=== PATIENT | female | born 1980 | race American Indian/Alaskan Native ===

== ENCOUNTER 2018-06-06 23:34 | Inpatient (IN) | payer MEDICAID, OTHER ==
[2018-06-06] MEDS ORDERED: NITROSTAT SL ONE (23:38)
--- NOTE | 2018-06-06 23:40 | Emergency Department Report ---
ED Chest Pain HPI - General Chief Complaint: Chest Pain Stated Complaint: CHEST PAIN Time Seen by Provider: 06/06/18 23:37 Source: patient, EMS (verbal report received from EMS.ems notes not available at time of chart dictation), RN notes reviewed Mode of arrival: Stretcher Limitations: No Limitations - History of Present Illness Initial Comments: This is a 38-year-old female who is not known to this provider previously. She is brought to the hospital by EMS as a possible out of hospital code STEMI. Patient reports a past medical history of migraines, reports that she is not , and reports that she has not delivered a given within the past 6 weeks. She denies oral contraceptive use, and denies DVT, pulmonary embolus risk factors. She does not have a local primary care doctor. The patient reports being in her usual state of health, when at approximately 10:15 this evening, she left work, and had a headache. The headache was pounding, frontal and bitemporal. The headache was not sudden or thunderclap in nature, and did not reach maximal intensity within an hour. The headache is similar to prior "migraine headaches", but was subtly more intense. It is not the worse headache of her life, she reports a worse headache a few years ago. This headache was associated with jaw pain, and left arm numbness. The patient also describes central chest pain, which is not radiates to the back, arms or neck, it is not associated with vomiting, diaphoresis or shortness of breath. The chest wall pain started at 10:15, and thus far has been constant. It appears to increase with palpation. It decreases with rest. EMS gave the patient aspirin in the field. patient states no family history of dvt, PE, acs, CAD She denies recent aspirin use, cocaine use MD Complaint: chest pain -: Gradual Onset: during rest Pain Location: substernal Pain Radiation: none Severity: moderate Quality: tightness, aching, heaviness Consistency: constant Improves With: rest Worsens With: palpation Treatments Prior to Arrival: aspirin Aspirin use within the Past 7 Days: (0) No - Related Data On Oral Contraceptives: No Previous Rx's Medication Instructions Recorded Last Taken Type Ibuprofen [Motrin] 800 mg PO Q8H PRN #20 tablet 12/09/13 Unknown Rx Allergies Allergy/AdvReac Type Severity Reaction Status Date / Time No Known Allergies Allergy Unverified 12/09/13 18:33 Heart Score - HEART Score History: Slightly suspicious EKG: Non-specific Age: < 45 Risk factors: No known risk factors Troponin: < normal limit HEART Score: 1 - Critical Actions Critical Actions: 0-3 pts:0.9-1.7%risk of adverse cardiac event.Candidate for discharge ED Review of Systems ROS: Stated complaint: CHEST PAIN Other details as noted in HPI Constitutional: denies: diaphoresis, fever Eyes: denies: vision change Respiratory: denies: cough Cardiovascular: chest pain Gastrointestinal: denies: nausea, vomiting Genitourinary: denies: dysuria, frequency, discharge Musculoskeletal: denies: back pain, arthralgia Skin: denies: lesions Neurological: headache, numbness, paresthesias ED Past Medical Hx - Surgical History Additional Surgical History: tubal - Social History Smoking Status: Current Every Day Smoker Substance Use Type: Alcohol - Medications Home Medications: Home Medications Medication Instructions Recorded Confirmed Last Taken Type Ibuprofen [Motrin] 800 mg PO Q8H PRN #20 tablet 12/09/13 Unknown Rx ED Physical Exam - General General appearance: alert, in no apparent distress - Head Head exam: Present: atraumatic, normocephalic - Eye Eye exam: Present: normal appearance, EOMI, other (visual acuity intact to finger counting, color perception, reading at a close distance). Absent: nystagmus - ENT ENT exam: Present: normal exam, normal orophraynx, mucous membranes moist, normal external ear exam - Neck Neck exam: Present: normal inspection, full ROM. Absent: tenderness, meningismus - Respiratory Respiratory exam: Present: normal lung sounds bilaterally, chest wall tenderness. Absent: respiratory distress, wheezes, rales, rhonchi, stridor - Cardiovascular Cardiovascular Exam: Present: regular rate, normal rhythm, normal heart sounds. Absent: bradycardia, tachycardia, irregular rhythm, systolic murmur, diastolic murmur, rubs, gallop - GI/Abdominal GI/Abdominal exam: Present: soft. Absent: distended, tenderness, guarding, rebound, rigid, pulsatile mass - Extremities Exam Extremities exam: Present: normal inspection, full ROM, other (2+ pulses noted i n the bilateral upper, lower extremities. Compartments soft. No long bony tenderness. The pelvis is stable.). Absent: pedal edema, joint swelling, calf tenderness - Back Exam Back exam: Present: normal inspection, full ROM. Absent: tenderness, CVA tenderness (R), paraspinal tenderness, vertebral tenderness - Neurological Exam Neurological exam: Present: alert, oriented X3, CN II-XII intact, other (Extraocular movements intact. Tongue midline. No facial droop. Facial sensation intact to light touch in the V1, V2, V3 distribution bilaterally. 5 and 5 strength in 4 extremities.. Sensation is intact to light touch in 4 extremities.). Absent: motor sensory deficit - Psychiatric Psychiatric exam: Present: normal affect, normal mood - Skin Skin exam: Present: warm, dry, intact, normal color. Absent: rash ED Course Vital Signs 06/06/18 06/06/18 06/07/18 23:41 23:50 00:59 Temperature 97.5 F L Pulse Rate 91 H 73 76 Respiratory 14 15 Rate Blood Pressure 114/89 Blood Pressure 114/89 119/78 [Left] O2 Sat by Pulse 100 99 Oximetry 06/07/18 06/07/18 01:19 01:22 Temperature Pulse Rate 77 Respiratory 14 15 Rate Blood Pressure Blood Pressure 120/61 [Left] O2 Sat by Pulse 98 Oximetry - Reevaluation(s) Reevaluation #1: 06/07/18 00:22 Differential diagnosis, including but not limited to: Acute coronary syndrome, costochondritis, pericarditis, pneumonia, GERD, gastritis, migraine headache, tension headache, cluster headache, intracranial hemorrhage, transient ischemic attack Assessment and plan: 38-year-old female with 2 complaints. First complaint is headache which is not historically consistent with subarachnoid hemorrhage, and reported left arm numbness. This is not present currently. The patient is not a TPA candidate as she has a [place] Coma Scale of 15, with an NIH score of 0. On a similar note, given her young age, and normal neurologic examination, does not require emergent endovascular imaging. We will treat her headache, and obtain a noncontrast CT scan of the brain. Patient is already given aspirin. Her second complaint is chest pain. Her prehospital EKGs were significantly abnormal, but not definitively consistent with STEMI. Her emergency room EKGs are abnormal, but not consistent with ST elevation myocardial infarction. The patient reports no DVT or pulmonary embolus risk factors, is low risk by well's criteria, and is PERC negative. She is not tachycardic or hypoxic. We will treat her pain appropriately, and obtain screening laboratory studies and x-ray of the chest. Given her abnormal EKG, we will admit the patient to the medical service for cardiac risk stratification once her initial diagnostic workup has been co mpleted. This was discussed with the patient who verbalized understanding, and was amenable to this plan of care. Patient is currently in no acute distress, laying on a cellular phone, and talking in an animated fashion to a friend or family member. Reevaluation #2: 06/07/18 01:[address] scan of the brain is negative. Troponin negative. X-ray of the chest negative. Patient reports that she feels improved. Hospital physician is paged to arrange admission. Reevaluation #3: 06/07/18 01:27 The Hospital physician, Dr. Tran has accepted the patient to the medical service. DUANE score - Duane Score Age > 65: (0) No Aspirin use within the Past 7 Days: (0) No (no aspirin use prior to EMS administration) 3 or more CAD Risk Factors: (0) No 2 or more Angina events in past 24 hrs: (0) No Known CAD with more than 50% Stenosis: (0) No Elevated Cardiac Markers: (0) No ST Deviation Greater than 0.5mm: (0) No DUANE Score: 0 ED Medical Decision Making - Lab Data Result diagrams: 06/06/18 23:51 06/06/18 23:51 Vital Signs 06/06/18 06/06/18 23:41 23:50 Temperature 97.5 F L Pulse Rate 91 H 73 Respiratory 14 Rate Blood Pressure 114/89 Blood Pressure 114/89 [Left] O2 Sat by Pulse 100 Oximetry Lab Results 06/06/18 06/06/18 Range/Units 23:51 23:51 WBC 7.5 (4.5-11.0) K/mm3 RBC 4.73 (3.65-5.03) M/mm3 Hgb 14.2 (10.1-14.3) gm/dl Hct 43.2 H (30.3-42.9) % MCV 91 (79-97) fl MCH 30 (28-32) pg MCHC 33 (30-34) % RDW 14.7 (13.2-15.2) % Plt Count 329 (140-440) K/mm3 PT 11.9 L (12.2-14.9) Sec. INR 0.84 L (0.87-1.13) APTT 23.3 L (24.2-36.6) Sec. - EKG Data -: EKG Interpreted by Me EKG shows normal: sinus rhythm Rate: normal - EKG Data When compared to previous EKG there are: previous EKG unavailable 06/07/18 00:25 EKG #1 demonstrates sinus, 73 bpm, normal axis, normal intervals, Q waves noted in the inferior leads, not consistent with ST elevation myocardial infarction. EKG #2, right-sided EKG leads, shows sinus, 70 bpm, normal axis, normal intervals, low voltage in the anteroseptal leads, persistent Q waves in the in ferior leads, this EKG is abnormal, and not consistent with an ST elevation myocardial infarction. - Radiology Data Radiology results: report reviewed, image reviewed X-ray the chest is negative for acute disease Critical care attestation.: If time is entered above; I have spent that time in minutes in the direct care of this critically ill patient, excluding procedure time. ED Disposition Clinical Impression: Chest pain, Headache Disposition: OP ADMIT IP TO THIS HOSP Is pt being admited?: Yes Does the pt Need Aspirin: Yes Condition: Good Instructions: Chest Pain (ED) Referrals: MORAIMA SMITH MD [Primary Care Provider] - 3-5 Days
[2018-06-06] MEDS ORDERED: BENADRYL IV ONE (23:47)
[2018-06-06] MEDS ORDERED: REGLAN IV ONE (23:47)
--- NOTE | 2018-06-07 00:03 | XRay Report ---
FINAL REPORT EXAM: XR CHEST 1V AP HISTORY: cp COMPARISON: None available. FINDINGS: Frontal view(s) of the chest obtained. Cardiac silhouette within normal limits. No gross consolidatio n or effusion. No pneumothorax. IMPRESSION: No grossly acute findings.
[2018-06-07 00:11] LABS: Hematocrit 43.2 % (30.3-42.9); Hemoglobin 14.2 gm/dl (10.1-14.3); Mean Corpuscular HGB Conc 33 % (30-34); Mean Corpuscular Volume 91 fl (79-97); Platelet Count 329 K/mm3 (140-440); Red Blood Count 4.73 M/mm3 (3.65-5.03); Red Cell Distribution Width 14.7 % (13.2-15.2)
[2018-06-07 00:20] LABS: INR 0.84 (0.87-1.13)
[2018-06-07 00:21] LABS: Partial Thromboplastin Time 23.3 Sec. (24.2-36.6)
[2018-06-07 00:32] LABS: BUN/Creatinine Ratio 11; Blood Urea Nitrogen 11 mg/dL (7-17); Calcium 8.8 mg/dL (8.4-10.2); Hemolysis Index 12
[2018-06-07] MEDS ORDERED: ALUM-MAG HYDROX-SIMETH 200-200-20MG/5ML PO ONE (00:46)
[2018-06-07] MEDS ORDERED: LIDOCAINE VISCOUS 2% PO ONE (00:47)
--- NOTE | 2018-06-07 01:22 | Cat Scan Report ---
FINAL REPORT EXAM: CT HEAD/BRAIN WO CON HISTORY: headache htn, left arm nujmbness COMPARISON: None available. TECHNIQUE: Axial images obtained skull base through vertex. FINDINGS: No acute intracranial hemorrhage, midline shift or pathologic extra axial fluid collection. Ventricle s and cisterns are normal in size and configuration for the patient's age. Fernandes-white differentiation preserved. Calvarium grossly intact. Visualized ocular globes are grossly unremarkable. There is an empty sella, anatomic variant. Mild mucosal thickening the visualized paranasal sinuses. Mastoid air cells are clear. IMPRESSION: No grossly acute intracranial abnormality.
[2018-06-07] MEDS ORDERED: BABY ASPIRIN PO ONE (01:27)
[2018-06-07] MEDS ORDERED: SODIUM CHLORIDE FLUSH SYRINGE 10 ML IV PRN (02:12)
[2018-06-07] MEDS ORDERED: MORPHINE IV PRN (02:12)
[2018-06-07] MEDS ORDERED: ZOFRAN IV PRN (02:12)
[2018-06-07] MEDS ORDERED: TYLENOL PO PRN (02:12)
--- NOTE | 2018-06-07 02:15 | History and Physical Report ---
History of Present Illness Date of examination: 06/07/18 History of present illness: 38-year-old woman history of migraine as emergency room complaining of headache and chest pain. Pain isn't all epigastric area which she describes a sharp pain, intermittent every 2 minutes, intensity 5/10, no radiation, cannabinoid an d exacerbating or relieving factors. Admits to palpitation, no nausea vomiting, shortness bite or diaphoresis Review of systems Constitutional: no weight loss, chills, fever Ears, eyes, nose, mouth and throat: no nasal congestion, no nasal discharge, no sinus pressure, no vision change, no red eye. Neck: No neck pain or rigidity. Cardiovascular: + palpitations, chest pain Respiratory: no cough, shortness of breath Gastrointestinal: no hematochezia, abdominal pain Genitourinary : no frequency , no hematuria Musculoskeletal: no joint swelling or muscle ache Integumentary: no rash, no pruritis Neurological: no parathesias, no focal weakness Endocrine: no cold or heat intolerance, no polyuria or polydipsia Hematologic/Lymphatic: no easy bruising, no easy bleeding, no gland swelling Allergic/Immunologic: no urticaria, no angioedema. PAST MEDICAL HISTORY: migraine PAST SURGICAL HISTORY: Tubal ligation SOCIAL HISTORY: + alcohol, drugs, +tobacco FAMILY HISTORY: Hypertension Medications and Allergies Allergies Allergy/AdvReac Type Severity Reaction Status Date / Time No Known Allergies Allergy Unverified 12/09/13 18:33 Home Medications Medication Instructions Recorded Confirmed Last Taken Type Ibuprofen [Motrin] 800 mg PO Q8H PRN #20 tablet 12/09/13 Unknown Rx Exam - Physical Exam Narrative exam: General Apperance: The patient lying in bed, breathing comfortable HEENT: Normocephalic, atraumatic. Pupils equally round and reactive to light, EOMI, no sclericterus or JVD or thyromegaly or nodule. , no carotid bruit, mucous membranes moist, no exudate or erythema Heart: S1-S2, regular is rhythm Lungs: Clear to auscultation bilaterally, breathing comfortable Abdomen: Positive bowel sounds, soft, nontender, nondistended, no organomegaly Extremities: No edema cyanosis clubbing Skin: no rash, nodule, warm and dry Neuro: cranial nerves 2-12 intact, speech is fluent, motor/sensory intact - Constitutional Vitals: Temp Pulse Resp BP Pulse Ox 97.5 F L 77 15 120/61 98 06/06/18 23:41 06/07/18 01:19 06/07/18 01:22 06/07/18 01:19 06/07/18 01:19 Results - Labs CBC & Chem 7: 06/06/18 23:51 06/06/18 23:51 Labs: Abnormal lab results 06/06/18 06/06/18 06/06/18 Range/Units 23:51 23:51 23:51 Hct 43.2 H (30.3-42.9) % PT 11.9 L (12.2-14.9) Sec. INR 0.84 L (0.87-1.13) APTT 23.3 L (24.2-36.6) Sec. Glucose 131 H (65-100) mg/dL - Imaging and Cardiology EKG: image reviewed Chest x-ray: image reviewed CT Scan - head: report reviewed Assessment and Plan Assessment Chest pain, rule out ACS Plan Admit to medicine Check cardiac enzymes, stress test Percocet, DVT prophylaxis
[2018-06-07 06:28] LABS: BUN/Creatinine Ratio 10; Blood Urea Nitrogen 10 mg/dL (7-17); Calcium 8.3 mg/dL (8.4-10.2); Hemolysis Index 71
[2018-06-07] MEDS ORDERED: LOVENOX SUB-Q SCH (10:00)
[2018-06-07] MEDS ORDERED: SODIUM CHLORIDE FLUSH SYRINGE 10 ML IV SCH (10:00)
[2018-06-07] MEDS ORDERED: LEXISCAN IV ONE ×2 (10:24→10:25)
[2018-06-07 13:41] VITALS: BP 119/77
--- NOTE | 2018-06-07 14:30 | Discharge Summary ---
Providers - Providers Date of Admission: 06/07/18 02:12 Date of discharge: 06/07/18 Attending physician: SEPIDEH LEE Primary care physician: MORAIMA SMITH Hospitalization Condition: Good Hospital course: Patient is 38 yo presented with chest pain. She was given Aspirin admitted to rule out acute coronary syndrome. Stress test was done, was negative. Chest pain determined to be non-cardiac due to GERD. Disposition: - TO HOME OR SELFCARE - Discharge Diagnoses (1) GERD (gastroesophageal reflux disease) Status: Acute (2) Chest pain Status: Acute (3) Headache Status: Acute Core Measure Documentation - Palliative Care Palliative Care/ Comfort Measures: Not Applicable - Core Measures Any of the following diagnoses?: none Exam - Constitutional Vitals: Temp Pulse Resp BP Pulse Ox 98.0 F 78 14 119/77 98 06/07/18 12:44 06/07/18 12:44 06/07/18 12:44 06/07/18 12:44 06/07/18 12:44 Plan Activity: advance as tolerated Diet: low fat, low cholesterol, low salt Additional Instructions: 1.Follow up with PCP or [facility] in 1 week Follow up with: MORAIMA SMITH MD [Primary Care Provider] - 3-5 Days Prescriptions: Butalb/Acetamin/Caff 50-325-40 [Fioricet] 1 tab PO Q6HR PRN #12 tab PRN Reason: Headache Famotidine [Pepcid] 20 mg PO BID #30 tablet
--- NOTE | 2018-06-07 23:12 | Treadmill Report ---
THALLIUM STRESS TEST LEFT VENTRICLE: Left ventricular chamber size is within normal spread. There is normal apical thinning, otherwise homogeneous uptake of the tracer in all segments, no significant perfusion defects identified. Gated analysis demonstrates normal left ventricular systolic function, ejection fraction of 66%. CONCLUSION: Normal myocardial perfusion study. JOB# [id number] CA/NTS
== END 2018-06-07 17:00 | disposition home or self-care (01) | DRG 392 ==
LOC: ED 23:34 → 4A 06-07 02:12
PROVIDERS: ADMIT Internal Medicine; ATTEND Internal Medicine
DX: K21.9 Gastro-esophageal reflux disease without esophagitis (principal); R07.9 Chest pain, unspecified; F17.210 Nicotine dependence, cigarettes, uncomplicated; G43.909 Migraine, unspecified, not intractable, without status migrainosus; Z82.49 Family history of ischemic heart disease and other diseases of the circulatory system; Z72.89 Other problems related to lifestyle; Z98.51 Tubal ligation status
CPT/HCPCS: 36415; 70450; 71045; 78452; 80048; 84484; 84702; 85027; 85610; 85730; 93005; 93010; 93017; 96374; 99406; G0378; A9502; J1650; J2765; J2785

== ENCOUNTER 2018-11-28 22:39 | Emergency (ER) | payer OTHER ==
[2018-11-28 23:30] LABS: Basophils # (Auto) 0.1 K/mm3 (0.0-0.1); Basophils % (Auto) 0.6 % (0.0-1.8); Eosinophils # (Auto) 0.1 K/mm3 (0.0-0.4); Eosinophils % (Auto) 1.3 % (0.0-4.3); Hemoglobin 14.9 gm/dl (10.1-14.3); Lymphocytes # (Auto) 2.5 K/mm3 (1.2-5.4); Lymphocytes % (Auto) 27.8 % (13.4-35.0); Mean Corpuscular HGB Conc 34 % (30-34); Mean Corpuscular Volume 91 fl (79-97); Monocytes # (Auto) 0.7 K/mm3 (0.0-0.8); Monocytes % (Auto) 7.4 % (0.0-7.3); Platelet Count 356 K/mm3 (140-440); Red Blood Count 4.83 M/mm3 (3.65-5.03); Red Cell Distribution Width 14.6 % (13.2-15.2)
[2018-11-29 00:03] LABS: Albumin 3.9 g/dL (3.9-5); Calcium 8.8 mg/dL (8.4-10.2)
[2018-11-29] MEDS ORDERED: NACL 0.9% 1000 ML 1,000 ML IV ONE (00:48)
[2018-11-29] MEDS ORDERED: ZOFRAN IV ONE (00:48)
[2018-11-29] MEDS ORDERED: MORPHINE IV ONE (00:48)
--- NOTE | 2018-11-29 00:49 | Emergency Department Report ---
ED Abdominal Pain HPI - General Chief Complaint: Abdominal Pain Stated Complaint: ABDOMINAL PAIN/VOMITING Time Seen by Provider: 11/29/18 00:15 Source: patient, RN notes reviewed, old records reviewed Mode of arrival: Wheelchair Limitations: Physical Limitation - History of Present Illness Initial Comments: Gynecology: Life cycle Primary care: Dr. Maravilla, [facility] Past medical history: Obesity, migraine headaches, recently treated for trichomoniasis, right-sided ovarian cyst, reports having had a recent abnormal outpatient gynecologic ultrasound, suggesting thickened endometrium. She states her photographic technician is planning on doing a DNC in the future. This is a 38-year-old female. The patient is known to this provider previously. The patient presents to the ER today with a complaint of nontraumatic rather sudden left flank pain moving to the left lower quadrant. This pain has been present for the past 24-48 hours. The pain is sharp and throbbing, radiates back and forth, increases with palpation, percussion, and decreases with rest. There is positive nausea and vomiting. There are no urinary symptoms. There are no gynecologic symptoms. The patient denies other complaints. She's not had pain like this in the past. MD Complaint: abdominal pain, flank pain, other -: Gradual Location: LLQ, L flank Radiation: LLQ, L flank Severity: moderate Severity scale (0 -10): 10 Quality: cramping Consistency: other Improves With: other Worsens With: other - Related Data Previous Rx's Medication Instructions Recorded Last Taken Type Ibuprofen [Motrin 800 MG tab] 800 mg PO Q8H PRN #20 tablet 12/09/13 Unknown Rx Butalb/Acetamin/Caff 50-325-40 1 tab PO Q6HR PRN #12 tab 06/07/18 Unknown Rx [Fioricet] Famotidine [Pepcid] 20 mg PO BID #30 tablet 06/07/18 Unknown Rx Acetaminophen [Non-Aspirin Extra 500 mg PO Q6HR PRN #30 tablet 11/29/18 Unknown Rx Strength] Ketorolac [Toradol] 10 mg PO Q6H PRN #20 tablet 11/29/18 Unknown Rx Ondansetron [Zofran Odt] 4 mg PO Q8HR PRN #20 tab.rapdis 11/29/18 Unknown Rx Allergies Allergy/AdvReac Type Severity Reaction Status Date / Time No Known Allergies Allergy Unverified 12/09/13 18:33 ED Review of Systems ROS: Stated complaint: ABDOMINAL PAIN/VOMITING Other details as noted in HPI Constitutional: denies: fever Eyes: denies: eye discharge ENT: denies: epistaxis Respiratory: denies: cough Cardiovascular: denies: chest pain Gastrointestinal: abdominal pain, nausea, vomiting Genitourinary: denies: urgency, dysuria Musculoskeletal: back pain Skin: denies: lesions Neurological: denies: weakness Psychiatric: anxiety ED Past Medical Hx - Past Medical History Previous Medical History?: No - Surgical History Past Surgical History?: Yes Additional Surgical History: tubal - Social History Smoking Status: Never Smoker - Medications Home Medications: Home Medications Medication Instructions Recorded Confirmed Last Taken Type Ibuprofen [Motrin 800 MG tab] 800 mg PO Q8H PRN #20 tablet 12/09/13 06/07/18 Unknown Rx Butalb/Acetamin/Caff 50-325-40 1 tab PO Q6HR PRN #12 tab 06/07/18 Unknown Rx [Fioricet] Famotidine [Pepcid] 20 mg PO BID #30 tablet 06/07/18 Unknown Rx Acetaminophen [Non-Aspirin Extra 500 mg PO Q6HR PRN #30 tablet 11/29/18 Unknown Rx Strength] Ketorolac [Toradol] 10 mg PO Q6H PRN #20 tablet 11/29/18 Unknown Rx Ondansetron [Zofran Odt] 4 mg PO Q8HR PRN #20 tab.rapdis 11/29/18 Unknown Rx ED Physical Exam - General Limitations: Physical Limitation General appearance: alert, anxious, obese - Head Head exam: Present: atraumatic, normocephalic - Eye Eye exam: Present: normal appearance, EOMI. Absent: nystagmus - ENT ENT exam: Present: normal exam, normal orophraynx, mucous membranes moist, normal external ear exam - Neck Neck exam: Present: normal inspection, full ROM. Absent: tenderness, meningismus - Respiratory Respiratory exam: Present: normal lung sounds bilaterally. Absent: respiratory distress - Cardiovascular Cardiovascular Exam: Present: regular rate, normal rhythm, normal heart sounds. Absent: bradycardia, tachycardia, irregular rhythm, systolic murmur, diastolic murmur, rubs, gallop - GI/Abdominal GI/Abdominal exam: Present: soft, tenderness, other (there is left lower quadrant abdominal pain. There is left lower quadrant abdominal tenderness. There is no rebound, guarding or peritoneal sign). Absent: distended, guarding, rebound, rigid, pulsatile mass - External exam: Present: normal external exam Speculum exam: Present: normal speculum exam Bi-manual exam: Present: normal bi-manual exam, other (chaperoned by nurse STERLING ROJO). Absent: cervical motion tendernes, adnexal tenderness, adnexal mass, uterine enlargement, uterine tenderness - Extremities Exam Extremities exam: Present: normal inspection, full ROM, other (2+ pulses noted in the bilateral upper, lower extremities. Compartments soft. No long bony tenderness. The pelvis is stable.). Absent: pedal edema, joint swelling, calf tenderness - Back Exam Back exam: Present: normal inspection, full ROM. Absent: tenderness, CVA tenderness (R), CVA tenderness (L), paraspinal tenderness, vertebral tenderness - Neurological Exam Neurological exam: Present: alert, other (Extraocular movements intact. Tongue midline. No facial droop. Facial sensation intact to light touch in the V1, V2, V3 distribution bilaterally. 5 and 5 strength in 4 extremities.. Sensation is intact to light touch in 4 extremities.) - Psychiatric Psychiatric exam: Present: anxious - Skin Skin exam: Present: warm, dry, intact, normal color. Absent: rash ED Course Vital Signs 11/28/18 11/29/18 11/29/18 22:40 00:00 01:10 Temperature 97.8 F 98.8 F Pulse Rate 69 83 Respiratory 18 15 19 Rate Blood Pressure 144/83 Blood Pressure 120/84 [Left] O2 Sat by Pulse 100 97 Oximetry 11/29/18 11/29/18 01:40 04:00 Temperature Pulse Rate 86 Respiratory 16 20 Rate Blood Pressure Blood Pressure 109/65 [Left] O2 Sat by Pulse 96 Oximetry - Reevaluation(s) Reevaluation #1: 11/29/18 01:15 Differential diagnosis, including but not limited to: Renal colic, urinary tract infection, ovarian cyst, pelvic inflammatory disease, constipation, obstruction Assessment and plan: 38-year-old female, recently diagnosed with trichomoniasis, noted to have right-sided ovarian cyst, reports an abnormal outpatient ultrasound, now with left flank and left lower quadrant pain. Patient is afebrile, with reassuring vital signs. Laboratory studies so far are essentially unremarkable. Pain medication will be given. Patient had some expected pruritus with morphine administration, although nothing concerning for anaphylaxis or anaphylactoid reaction. Gynecologic ultrasound, CT scan of the abdomen and pelvis have been ordered and are pending, and we will perform a pel tereza examination. We will reassess after her data points have resulted. Reevaluation #2: 11/29/18 02:56 Patient feels much improved after initial pain medication. Resting comfortably in stretcher with no abdominal tenderness. She is smiling and states that she feels much improved. CT scan is interpreted and reviewed and appreciated. I do not have a heavy suspicion for torsion at this time, as the patient did not have exquisite left-sided adnexal tenderness. Ultrasound is pending performance and interpretation at this time. Reevaluation #3: 11/29/18 04:25 As expected, gynecologic ultrasound does not demonstrate torsion. Patient speak ing on cell phone, and feels quite comfortable. Her menstruation is about to start. She reports that she always has abdominal pain with her menstruation. She has minimal lower quadrant tenderness, but no rebound or guarding, and states that she feels ready for discharge. we contacted her covering photographic technician, Dr. Valeria Camara, and I discussed the patient's CT scan, physical exam, ultrasounds, and laboratory studies. We agree the patient at this point time does not appear to require emergent surgical evaluation. Gynecology on- call is amenable to following the patient closely as an outpatient. ED Medical Decision Making - Lab Data Result diagrams: 11/28/18 23:02 11/28/18 23:04 Vital Signs 11/28/18 11/29/18 22:40 00:00 Temperature 97.8 F 98.8 F Pulse Rate 69 83 Respiratory 18 15 Rate Blood Pressure 144/83 Blood Pressure 120/84 [Left] O2 Sat by Pulse 100 97 Oximetry Active Medications Sodium Chloride (Nacl 0.9% 1000 Ml) 1,000 mls @ 999 mls/hr IV BOLUS ONE Stop: 11/29/18 01:48 Lab Results 11/28/18 11/28/18 11/28/18 Range/Units 23:02 23:04 Unknown WBC 8.9 (4.5-11.0) K/mm3 RBC 4.83 (3.65-5.03) M/mm3 Hgb 14.9 H (10.1-14.3) gm/dl Hct 44.0 H (30.3-42.9) % MCV 91 (79-97) fl MCH 31 (28-32) pg MCHC 34 (30-34) % RDW 14.6 (13.2-15.2) % Plt Count 356 (140-440) K/mm3 Lymph % (Auto) 27.8 (13.4-35.0) % [place] % (Auto) 7.4 H (0.0-7.3) % Eos % (Auto) 1.3 (0.0-4.3) % Baso % (Auto) 0.6 (0.0-1.8) % Lymph # 2.5 (1.2-5.4) K/mm3 Treg[place] # 0.7 (0.0-0.8) K/mm3 Eos # 0.1 (0.0-0.4) K/mm3 Baso # 0.1 (0.0-0.1) K/mm3 Seg Neutrophils % 62.9 (40.0-70.0) % Seg Neutrophils # 5.6 (1.8-7.7) K/mm3 Sodium 140 (137-145) mmol/L Potassium 4.0 (3.6-5.0) mmol/L Chloride 101.9 (98-107) mmol/L Carbon Dioxide 29 (22-30) mmol/L Anion Gap 13 mmol/L BUN 13 (7-17) mg/dL Creatinine 1.4 H (0.7-1.2) mg/dL Estimated GFR 51 ml/min BUN/Creatinine Ratio 9 % Glucose 124 H (65-100) mg/dL Calcium 8.8 (8.4-10.2) mg/dL Total Bilirubin 0.20 (0.1-1.2) mg/dL AST 25 (5-40) units/L ALT 30 (7-56) units/L Alkaline Phosphatase 61 (35-129) units/L Total Protein 6.7 (6.3-8.2) g/dL Albumin 3.9 (3.9-5) g/dL Albumin/Globulin Ratio 1.4 % Urine Color Yellow (Yellow) Urine Turbidity Clear (Clear) Urine pH 7.0 (5.0-7.0) Ur Specific [place] 1.026 (1.003-1.030) Urine Protein <15 mg/dl (Negative) mg/dL Urine Glucose (UA) Neg (Negative) mg/dL Urine Ketones Neg (Negative) mg/dL Urine Blood Neg (Negative) Urine Nitrite Neg (Negative) Urine Bilirubin Neg (Negative) Urine Urobilinogen < 2.0 (<2.0) mg/dL Ur Leukocyte Esterase Neg (Negative) Urine WBC (Auto) 1.0 (0.0-6.0) /HPF Urine RBC (Auto) 1.0 (0.0-6.0) /HPF U Epithel Cells (Auto) 6.0 (0-13.0) /HPF Urine Mucus Few /HPF Urine HCG, Qual (Negative) 11/29/18 Range/Units 00:50 WBC (4.5-11.0) K/mm3 RBC (3.65-5.03) M/mm3 Hgb (10.1-14.3) gm/dl Hct (30.3-42.9) % MCV (79-97) fl MCH (28-32) pg MCHC (30-34) % RDW (13.2-15.2) % Plt Count (140-440) K/mm3 Lymph % (Auto) (13.4-35.0) % [place] % (Auto) (0.0-7.3) % Eos % (Auto) (0.0-4.3) % Baso % (Auto) (0.0-1.8) % Lymph # (1.2-5.4) K/mm3 [place] # (0.0-0.8) K/mm3 Eos # (0.0-0.4) K/mm3 Baso # (0.0-0.1) K/mm3 Seg Neutrophils % (40.0-70.0) % Seg Neutrophils # (1.8-7.7) K/mm3 Sodium (137-145) mmol/L Potassium (3.6-5.0) mmol/L Chloride (98-107) mmol/L Carbon Dioxide (22-30) mmol/L Anion Gap mmol/L BUN (7-17) mg/dL Creatinine (0.7-1.2) mg/dL Estimated GFR ml/min BUN/Creatinine Ratio % Glucose (65-100) mg/dL Calcium (8.4-10.2) mg/dL Total Bilirubin (0.1-1.2) mg/dL AST (5-40) units/L ALT (7-56) units/L Alkaline Phosphatase (35-129) units/L Total Protein (6.3-8.2) g/dL Albumin (3.9-5) g/dL Albumin/Globulin Ratio % Urine Color (Yellow) Urine Turbidity (Clear) Urine pH (5.0-7.0) Ur Specific [place] (1.003-1.030) Urine Protein (Negative) mg/dL Urine Glucose (UA) (Negative) mg/dL Urine Ketones (Negative) mg/dL Urine Blood (Negative) Urine Nitrite (Negative) Urine Bilirubin (Negative) Urine Urobilinogen (<2.0) mg/dL Ur Leukocyte Esterase (Negative) Urine WBC (Auto) (0.0-6.0) /HPF Urine RBC (Auto) (0.0-6.0) /HPF U Epithel Cells (Auto) (0-13.0) /HPF Urine Mucus /HPF Urine HCG, Qual Negative (Negative) - Radiology Data Radiology results: pending, report reviewed, image reviewed Print Report Referring Physician: SEPIDEH LOTT Patient Name: HINA HODGE Date of : 1980 Sex: Female Report Date: 2018-11-29 Report Status: [place] [address] Cat Scan Report Signed Patient: HINA HODGE MR#: [id number] : 1980 Acct:[id number] Age/Sex: 38 / F ADM Date: 11/28/18 Loc: ED Attending Dr: Ordering Physician: SEPIDEH LOTT MD Date of Service: 11/29/18 Procedure(s): CT abdomen pelvis wo con Accession Number(s): [id number] cc: SEPIDEH LOTT MD CT ABDOMEN AND PELVIS WITHOUT CONTRAST HISTORY: Left lower quadrant abdominal pain. COMPARISON: No relevant prior imaging study available. TECHNIQUE: Axial, coronal and sagittal CT imaging of the abdomen and pelvis was performed without contrast. Lack of intravenous contrast limits evaluation of the vascular and solid organs. All CT scans at this location are performed using CT dose reduction for ALARA by means of automated exposure control. FINDINGS: LOWER CHEST: No significant abnormality. LIVER: No significant abnormality. ARMANDO IARY: No significant abnormality. PANCREAS: No significant abnormality. SPLEEN: No significant abnormality. ADRENALS: No significant abnormality. KIDNEYS AND URETERS: No significant abnormality. GI TRACT: No significant abnormality of the stomach, small bowel or colon. Unremarkable appendix. PERITONEUM: No free fluid. No free air. No fluid collection. LYMPH NODES: No significant adenopathy. VASCULATURE: No significant abnormality. URINARY BLADDER: No significant abnormality. REPRODUCTIVE ORGANS: There is nonspecific enlargement and increased attenuation of the left ovary without surrounding inflammation. No additional significant abnormality. ADDITIONAL FINDINGS: None. SKELETAL SYSTEM: No si gnificant abnormality. IMPRESSION: 1. Nonspecific abnormal appearance of the left ovary may represent torsion. A pelvic ultrasound would be helpful for further evaluation. 2. No additional acute abnormality of the abdomen or pelvis. Signer Name: Harpreet Vicente MD Signed: 11/29/2018 2:26 AM Workstation Name: [id number] Transcribed By: MN Dictated By: Harpreet Vicente MD Electronically Authenticated By: Harpreet Vicente MD Signed Date/Time: 11/29/18 022 Print Report Referring Physician: SEPIDEH LOTT Patient Name: HINA HODGE Date of : 1980 Sex: Female Report Date: 2018-11-29 Report Status: Finalized Findings [facility] [address] [id number] Ultrasound Report Signed Patient: HINA HODGE MR#: [id number] : 1980 Acct:[id number] Age/Sex: 38 / F ADM Date: 11/28/18 Loc: ED Attending Dr: Ordering Physician: SEPIDEH LOTT MD Date of Service: 11/29/18 Procedure(s): US transvaginal Accession Number(s): [id number] cc: SEPIDEH LOTT MD ULTRASOUND PELVIS INDICATION: Left lower quadrant pain. History of right ovarian cyst. TECHNIQUE: Transabdominal and Transvaginal. Duplex Color Doppler used: Yes. COMPARISON: CT of the abdomen and pelvis without contrast from earlier the same day. FINDINGS: Uterus: Present. Size: 12.9 x 5.8 x 6.1 cm. Endometrial complex: Thickened measuring 2.0 cm. Mass lesions: A probable uterine body fibroid measures 2.5 x 2.1 cm. Additional findings: None. Right Ovary: Size: 3.5 x 1.6 x 3.1 cm Blood flow: Normal. Cyst or mass: None. Left Ovary: Size: 5.1 x 2.3 x 4.6 cm Blood flow: Normal. Cyst or mass: A dominant follicle measures 2 cm. No suspicious solid lesion. Urinary Bladder: Normal. Free Fluid: Minimal free fluid is likely physiologic. Additional Findings: None. IMPRESSION: 1. No acute sonographic abnormality of the pelvis. 2. Probable uterine fibroid as above. Signer Name: Harpreet Vicente MD Signed: 11/29/2018 4:19 AM Workstation Name: [id number] Transcribed By: ESTHER Dictated By: Harpreet baig MD Electronically Authenticated By: Harpreet Vicente MD Signed Date/Time: 11/29/18 0419 Critical care attestation.: If time is entered above; I have spent that time in minutes in the direct care of this critically ill patient, excluding procedure time. ED Disposition Clinical Impression: Left lower quadrant abdominal pain Disposition: DC-01 TO HOME OR SELFCARE Is pt being admited?: No Does the pt Need Aspirin: No Condition: Stable Additional Instructions: Cultures were sent today, and results will be available in the next 3-5 days. Have your photographic technician contact the medical records department to obtain culture results. Take the pain medication, nausea medication as needed/directed. Avoid heavy lifting and sexual activity until cleared by her photographic technician. Return to the emergency room right away with new, worsening or different symptoms, or symptoms not present on the initial emergency room evaluation. Referrals: AMI CAMARA MD [Staff Physician] - 3-5 Days
[2018-11-29 01:08] LABS: Bilirubin,Urine NEG (Negative); Blood,Urine NEG (Negative); Color,Urine Yellow (Yellow); Mucus,Urine FEW /HPF; Protein,Urine <15 mg/dL mg/dL (Negative); Urobilinogen,Urine < 2.0 mg/dL (<2.0)
[2018-11-29 01:12] LABS: HCG Qualitative,Urine Negative (Negative)
--- NOTE | 2018-11-29 02:31 | Cat Scan Report ---
CT ABDOMEN AND PELVIS WITHOUT CONTRAST HISTORY: Left lower quadrant abdominal pain. COMPARISON: No relevant prior imaging study available. TECHNIQUE: Axial, coronal and sagittal CT imaging of the abdomen and pelvis was performed without co ntrast. Lack of intravenous contrast limits evaluation of the vascular and solid organs. All CT sca ns at this location are performed using CT dose reduction for ALARA by means of automated exposure co ntrol. FINDINGS: LOWER CHEST: No significant abnormality. LIVER: No significant abnormality. BILIARY: No significant abnormality. PANCREAS: No significant abnormality. SPLEEN: No significant abnormality. ADRENALS: No significant abnormality. KIDNEYS AND URETERS: No significant abnormality. GI TRACT: No significant abnormality of the stomach, small bowel or colon. Unremarkable appendix. PERITONEUM: No free fluid. No free air. No fluid collection. LYMPH NODES: No significant adenopathy. VASCULATURE: No significant abnormality. URINARY BLADDER: No significant abnormality. REPRODUCTIVE ORGANS: There is nonspecific enlargement and increased attenuation of the left ovary wit hout surrounding inflammation. No additional significant abnormality. ADDITIONAL FINDINGS: None. SKELETAL SYSTEM: No significant abnormality. IMPRESSION: 1. Nonspecific abnormal appearance of the left ovary may represent torsion. A pelvic ultrasound would be helpful for further evaluation. 2. No additional acute abnormality of the abdomen or pelvis. Signer Name: Harpreet Vicente MD Signed: 11/29/2018 2:26 AM Workstation Name: [id number]
[2018-11-29 04:05] VITALS: BP 109/65
[2018-11-29] MEDS ORDERED: TORADOL IV ONE (04:22)
--- NOTE | 2018-11-29 04:23 | Ultrasound Report ---
ULTRASOUND PELVIS INDICATION: Left lower quadrant pain. History of right ovarian cyst. TECHNIQUE: Transabdominal and Transvaginal. Duplex Color Doppler used: Yes. COMPARISON: CT of the abdomen and pelvis without contrast from earlier the same day. FINDINGS: Uterus: Present. Size: 12.9 x 5.8 x 6.1 cm. Endometrial complex: Thickened measuring 2.0 cm. Mass lesions: A probable uterine body fibroid measures 2.5 x 2.1 cm. Additional findings: None. Right Ovary: Size: 3.5 x 1.6 x 3.1 cm Blood flow: Normal. Cyst or mass: None. Left Ovary: Size: 5.1 x 2.3 x 4.6 cm Blood flow: Normal. Cyst or mass: A dominant follicle measures 2 cm. No suspicious solid lesion. Urinary Bladder: Normal. Free Fluid: Minimal free fluid is likely physiologic. Additional Findings: None. IMPRESSION: 1. No acute sonographic abnormality of the pelvis. 2. Probable uterine fibroid as above. Signer Name: Harpreet Vicente MD Signed: 11/29/2018 4:19 AM Workstation Name: [id number]
== END 2018-11-29 05:00 | disposition home or self-care (01) ==
LOC: ED 22:39
DX: R10.32 Left lower quadrant pain (principal); R11.2 Nausea with vomiting, unspecified; Z98.51 Tubal ligation status; Z79.899 Other long term (current) drug therapy
CPT/HCPCS: 36415; 74176; 76830; 80053; 81001; 81025; 85025; 87210; 87591; 93975; 96361; 96374; 96375; 99284; J1885; J2270; J2405; J7030

== ENCOUNTER 2018-12-11 21:32 | Emergency (ER) | payer OTHER ==
--- NOTE | 2018-12-11 22:00 | Event Note ---
ED Screening Note Date of service: 12/11/18 Time: 21:53 ED Screening Note: 38 y/o female LMP 12/11/18. Has soaked 2 pads in an hours. History of heavy periods. No pain. No dizziness. This initial assessment/diagnostic orders/clinical plan/treatment(s) is/are subject to change based on patients health status, clinical progression and re- assessment by fellow clinical providers in the ED. Further treatment and workup at subsequent clinical providers discretion. Patient/guardian urged not to elope from the ED as their condition may be serious if not clinically assessed and managed. Initial orders include:
[2018-12-11 22:40] VITALS: BP 126/70
[2018-12-11 22:44] LABS: Hematocrit 41.6 % (30.3-42.9); Hemoglobin 14.1 gm/dl (10.1-14.3); Mean Corpuscular HGB Conc 34 % (30-34); Mean Corpuscular Volume 91 fl (79-97); Red Blood Count 4.59 M/mm3 (3.65-5.03); Red Cell Distribution Width 14.1 % (13.2-15.2)
[2018-12-11 22:45] LABS: Basophils # (Auto) 0.1 K/mm3 (0.0-0.1); Basophils % (Auto) 0.8 % (0.0-1.8); Eosinophils # (Auto) 0.3 K/mm3 (0.0-0.4); Eosinophils % (Auto) 3.2 % (0.0-4.3); Lymphocytes % (Auto) 34.9 % (13.4-35.0); Monocytes # (Auto) 0.7 K/mm3 (0.0-0.8); Monocytes % (Auto) 7.9 % (0.0-7.3); Platelet Count 305 K/mm3 (140-440)
[2018-12-11 23:50] LABS: Alanine Aminotransferase 19 units/L (7-56); Albumin 4.2 g/dL (3.9-5); BUN/Creatinine Ratio 10; Blood Urea Nitrogen 12 mg/dL (7-17); Calcium 9.1 mg/dL (8.4-10.2); Hemolysis Index 3
--- NOTE | 2018-12-12 01:10 | Emergency Department Report ---
ED Female HPI - General Chief complaint: Vaginal Bleeding Stated complaint: CYST AND BLEEDING HEAVY Time Seen by Provider: 12/11/18 21:53 Source: patient Mode of arrival: Ambulatory Limitations: No Limitations - History of Present Illness Initial comments: The patient is a 38-year-old -[place] female with recently diagnosed left ovarian cyst presented to the ED with complaint of acute onset severe pelvic pain with heavy vaginal bleeding for the last 2 days. Patient states that she started having her menstrual cycle about 3 days ago on that in the last 2 days her menstrual cycle has been heavy with blood clots in the toilet. Patient states that although she has a history of heavy vaginal bleeding to her menstrual cycle the fact that she developed large amount of blood clots made her concerned and she decided come to the ED for evaluation. Patient denies fever, chills, nausea, vomiting, dizziness, chest pain, shortness of breath, dysuria, urinary frequency and urgency or low back pain. MD Complaint: vaginal bleeding, pelvic pain -: Sudden, days(s) (2) Location: suprapubic Radiation: non-radiating Severity: severe Severity scale (0 -10): 3 Quality: cramping, dull Consistency: constant Improves with: none Worsens with: none Are you Now?: No Last Menstrual Period: 12/12/18 EDC: 09/18/19 Associated Symptoms: denies other symptoms, vaginal bleeding, abdominal pain, f ever/chills. denies: vaginal discharge, nausea/vomiting, headaches, loss of appetite, dysuria, hematuria, rash, shortness of breath, syncope, weakness - Related Data Sexually active: Yes : 3 Para: 3 A: 0 Previous Rx's Medication Instructions Recorded Last Taken Type Ibuprofen [Motrin 800 MG tab] 800 mg PO Q8H PRN #20 tablet 12/09/13 Unknown Rx Butalb/Acetamin/Caff 50-325-40 1 tab PO Q6HR PRN #12 tab 06/07/18 Unknown Rx [Fioricet] Famotidine [Pepcid] 20 mg PO BID #30 tablet 06/07/18 Unknown Rx Acetaminophen [Non-Aspirin Extra 500 mg PO Q6HR PRN #30 tablet 11/29/18 Unknown Rx Strength] Ketorolac [Toradol] 10 mg PO Q6H PRN #20 tablet 11/29/18 Unknown Rx Ondansetron [Zofran Odt] 4 mg PO Q8HR PRN #20 tab.rapdis 11/29/18 Unknown Rx Acetaminophen/Codeine [Tylenol 1 tab PO Q6H PRN #14 tab 12/12/18 Unknown Rx /Codeine # 3 tab] Ibuprofen [Motrin] 800 mg PO Q8HR PRN #20 tablet 12/12/18 Unknown Rx Ondansetron [Zofran Odt] 4 mg PO Q8HR PRN #15 tab.rapdis 12/12/18 Unknown Rx Allergies Allergy/AdvReac Type Severity Reaction Status Date / Time No Known Allergies Allergy Verified 12/11/18 21:36 ED Review of Systems ROS: Stated complaint: CYST AND BLEEDING HEAVY Other details as noted in HPI Comment: All other systems reviewed and negative Constitutional: denies: chills, fever Eyes: denies: eye pain, eye discharge, vision change ENT: denies: ear pain, throat pain Respiratory: denies: cough, shortness of breath, wheezing Cardiovascular: denies: chest pain, palpitations Endocrine: no symptoms reported Gastrointestinal: abdominal pain (pelvic pain). denies: nausea, vomiting, diarrhea, constipation, hematemesis, hematochezia Genitourinary: hematuria, abnormal menses, other (heavy vaginal bleeding). denies: urgency, dysuria, discharge Musculoskeletal: denies: back pain, joint swelling, arthralgia Skin: denies: rash, lesions Neurological: denies: headache, weakness, paresthesias Psychiatric: denies: anxiety, depression Hematological/Lymphatic: denies: easy bleeding, easy bruising ED Past Medical Hx - Surgical History Additional Surgical History: tubal - Social History Smoking Status: Current Every Day Smoker Substance Use Type: Alcohol - Medications Home Medications: Home Medications Medication Instructions Recorded Confirmed Last Taken Type Ibuprofen [Motrin 800 MG tab] 800 mg PO Q8H PRN #20 tablet 12/09/13 06/07/18 Unknown Rx Butalb/Acetamin/Caff 50-325-40 1 tab PO Q6HR PRN #12 tab 06/07/18 Unknown Rx [Fioricet] Famotidine [Pepcid] 20 mg PO BID #30 tablet 06/07/18 Unknown Rx Acetaminophen [Non-Aspirin Extra 500 mg PO Q6HR PRN #30 tablet 11/29/18 Unknown Rx Strength] Ketorolac [Toradol] 10 mg PO Q6H PRN #20 tablet 11/29/18 Unknown Rx Ondansetron [Zofran Odt] 4 mg PO Q8HR PRN #20 tab.rapdis 11/29/18 Unknown Rx Acetaminophen/Codeine [Tylenol 1 tab PO Q6H PRN #14 tab 12/12/18 Unknown Rx /Codeine # 3 tab] Ibuprofen [Motrin] 800 mg PO Q8HR PRN #20 tablet 12/12/18 Unknown Rx Ondansetron [Zofran Odt] 4 mg PO Q8HR PRN #15 tab.rapdis 12/12/18 Unknown Rx ED Physical Exam - General Limitations: No Limitations General appearance: alert, in no apparent distress - Head Head exam: Present: atraumatic, normocephalic, normal inspection - Eye Eye exam: Present: normal appearance, PERRL, EOMI. Absent: scleral icterus, conjunctival injection Pupils: Present: normal accommodation - ENT ENT exam: Present: normal exam, normal orophraynx, mucous membranes moist, TM's normal bilaterally, normal external ear exam - Neck Neck exam: Present: normal inspection, full ROM - Respiratory Respiratory exam: Present: normal lung sounds bilaterally. Absent: respiratory distress, wheezes, rhonchi, stridor, chest wall tenderness, accessory muscle use, decreased breath sounds, prolonged expiratory - Cardiovascular Cardiovascular Exam: Present: regular rate, normal rhythm, normal heart sounds. Absent: systolic murmur, diastolic murmur, rubs, gallop - GI/Abdominal GI/Abdominal exam: Present: soft, normal bowel sounds. Absent: tenderness, guarding, rebound, hyperactive bowel sounds, organomegaly, mass - Rectal Rectal exam: Present: deferred - Extremities Exam Extremities exam: Present: normal inspection, full ROM, normal capillary refill - Back Exam Back exam: Present: normal inspection, full ROM. Absent: tenderness, CVA tenderness (R), CVA tenderness (L), muscle spasm, paraspinal tenderness, vertebral tenderness - Neurological Exam Neurological exam: Present: alert, oriented X3, CN II-XII intact, normal gait, reflexes normal - Psychiatric Psychiatric exam: Present: normal affect, normal mood - Skin Skin exam: Present: warm, dry, intact, normal color. Absent: rash ED Course Vital Signs 12/11/18 21:52 Temperature 98 F Pulse Rate 94 H Respiratory 20 Rate Blood Pressure 126/70 O2 Sat by Pulse 98 Oximetry - Reevaluation(s) Reevaluation #1: 12/12/18 06:59 This is a 38-year-old female who presented to the ED with worsening dysmenorrhea and menometrorrhagia. In the ED, the patient is alert and oriented 3 with normal vital signs and is not in distress. Lab test results were reviewed and are unremarkable except for large amount of blood in the urine. On reevaluation, patient pain is well controlled in the ED, and the patient was discharged home on medications and advised [employer] physician in 5-7 days for reevaluation. Patient was advised to return to the ED immediately if symptoms get worse. ED Medical Decision Making - Lab Data Result diagrams: 12/11/18 22:00 12/11/18 Unknown - Medical Decision Making This is a 38-year-old female who presented to the ED with worsening dysmenorrhea and menometrorrhagia. In the ED, the patient is alert and oriented 3 with normal vital signs and is not in distress. Lab test results were reviewed and are unremarkable except for large amount of blood in the urine. On reevaluation, patient pain is well controlled in the ED, and the patient was dis charged home on medications and advised [employer] physician in 5-7 days for reevaluation. Patient was advised to return to the ED immediately if symptoms get worse. - Differential Diagnosis dysmenorrhea, menometrorrhagia, pelvic pain, ovarian cyst, acute UTI Critical care attestation.: If time is entered above; I have spent that time in minutes in the direct care of this critically ill patient, excluding procedure time. ED Disposition Clinical Impression: Dysmenorrhea, Menometrorrhagia, Acute pelvic pain, female, Left ovarian cyst Disposition: DC-01 TO HOME OR SELFCARE Is pt being admited?: No Does the pt Need Aspirin: No Condition: Stable Instructions: Menstruation (ED), Dysmenorrhea (ED) Additional Instructions: FOLLOW UP WITH YOUR [employer] PHYSICIAN IN 5-7 DAYS FOR REEVALUATION. RETURN TO THE ED IMMEDIATELY IF SYMPTOMS GET WORSE. Prescriptions: Ibuprofen [Motrin] 800 mg PO Q8HR PRN #20 tablet PRN Reason: Pain , Severe (7-10) Acetaminophen/Codeine [Tylenol /Codeine # 3 tab] 1 tab PO Q6H PRN #14 tab PRN Reason: Pain , Severe (7-10) Ondansetron [Zofran Odt] 4 mg PO Q8HR PRN #15 tab.rapdis PRN Reason: Nausea Referrals: [facility] [Outside] - 3-5 Days Time of Disposition: 01:13 Print Language: ITALIAN
[2018-12-12 01:22] LABS: Bilirubin,Urine NEG (Negative); Blood,Urine LG (Negative); Color,Urine Yellow (Yellow); Mucus,Urine FEW /HPF; Protein,Urine <15 mg/dL mg/dL (Negative)
== END 2018-12-12 01:57 | disposition home or self-care (01) ==
LOC: ED 21:32
DX: N94.6 Dysmenorrhea, unspecified (principal); N92.1 Excessive and frequent menstruation with irregular cycle; N83.202 Unspecified ovarian cyst, left side; F17.200 Nicotine dependence, unspecified, uncomplicated; Z98.51 Tubal ligation status; Z79.899 Other long term (current) drug therapy
CPT/HCPCS: 36415; 80053; 81001; 84702; 85025; 86850; 86900; 86901

== ENCOUNTER 2021-08-25 09:32 | Outpatient (CLI) | payer OTHER ==
--- NOTE | 2021-08-25 10:57 | XRay Report ---
BILATERAL KNEES, 6 TOTAL VIEWS INDICATION / CLINICAL INFORMATION: BILATERAL KNEE PAIN COMPARISON: None available. FINDINGS: BONES / JOINT(S): No acute fracture or subluxation. No significant arthritis. SOFT TISSUES: No significant abnormality. ADDITIONAL FINDINGS: None. IMPRESSION: No significant abnormality. Signer Name: Rolando Velasquez MD Signed: 08/25/2021 10:50 AM Workstation Name: [id number]
== END 2021-08-25 09:33 | disposition home or self-care (01) ==
LOC: XRAY 09:32
PROVIDERS: ATTEND Internal Medicine
DX: M25.561 Pain in right knee (principal); M25.562 Pain in left knee